=== PATIENT | male | born 1960 | race Caucasian/White ===

== ENCOUNTER → 2017-01-20 | Day surgery (SDC) | payer BC ==
[~2017-01-20] VITALS: Ht 179.1 cm; Wt 137.0 kg
[~2017-01-20] MED LIST: BACITRACIN 50,000 UNITS/VIAL ONE; GELATIN SPONGE,ABSORBABLE SZ 100 ONE; GLIM4TAB2 PO; LISI10TA5 PO; MAGN400C PO; METF850T2 PO; NORMAL SALINE 0.9% 10 ML SYR ONE; OXYC-100 PO; PANT40TA4 PO; PIRO20CA2 PO; POTA20TA82 PO; THROMBIN (BOVINE) 5000 UNITS/VIAL TOP ONE; TRIA1TAB5 PO
[2017-01-20 10:38] LABS: BASOPHILS % 0.9 % (0.0-2.0); EOSINOPHILS % 3.2 % (0.0-5.0); HEMOGLOBIN. 13.1 g/dL (14.0-18.0); LYMPHOCYTES % 19.3 % (20.0-50.0); MEAN CORPUSCULAR HEMOGLOBIN 30.7 pg (28.0-32.0); MEAN PLATELET VOLUME 7.8 fl (7.4-10.4); MONOCYTES % 9.6 % (2.0-8.0); PLATELET 59 x1000/uL (130-400); RED BLOOD CELL COUNT 4.27 mill/uL (4.7-6.1); RED CELL DISTRIBUTION WIDTH 15.6 % (11.6-14.6)
[2017-01-20 10:48] LABS: INR 1.1; PARTIAL THROMBOPLASTIN TIME 25.9 sec (24.0-34.0); PROTHROMBIN TIME 11.3 sec
[2017-01-20 10:51] LABS: CARBON DIOXIDE 27 mEq/L (21-32); CHLORIDE 102 mEq/L (98-107)
[2017-01-20 12:08] LABS: PLATELET ESTIMATE DECREASED
== END ==
LOC: OR 08:46
PROVIDERS: ATTEND Neurological Surgery
DX: M48.56XA Collapsed vertebra, not elsewhere classified, lumbar region, initial encounter for fracture (principal); Z53.9 Procedure and treatment not carried out, unspecified reason
CPT/HCPCS: 36415; 80048; 80076; 82962; 85025; 85610; 85730; 86850; 86900; 86901; A4216; J3490

== ENCOUNTER 2017-01-25 05:39 | Inpatient (IN) | payer BC ==
[~2017-01-25] VITALS: Ht 177.8 cm; Wt 141.5 kg
[2017-01-25] VITALS (34 sets, daily range): BP systolic 106–181; BP diastolic 32–99
[~2017-01-25 05:39] MED LIST changes: -BACITRACIN 50,000 UNITS/VIAL ONE; -GELATIN SPONGE,ABSORBABLE SZ 100 ONE; -NORMAL SALINE 0.9% 10 ML SYR ONE; -THROMBIN (BOVINE) 5000 UNITS/VIAL TOP ONE
[2017-01-25 07:07] LABS: HEMATOCRIT. 36.5 % (42.0-52.0); HEMOGLOBIN. 12.5 g/dL (14.0-18.0); MEAN CORPUSCULAR HEMOGLOBIN 30.5 pg (28.0-32.0); MEAN PLATELET VOLUME 8.2 fl (7.4-10.4); PLATELET 57 x1000/uL (130-400); RED CELL DISTRIBUTION WIDTH 15.6 % (11.6-14.6)
[2017-01-25] MEDS ORDERED: SODIUM CHLORIDE 0.9% 1,000 ML IV ONE (07:45)
[2017-01-25] MEDS ORDERED: HYDROMORPHONE HCL/PF 2MG/ML CPJ IV PRN (09:30)
[2017-01-25] MEDS ORDERED: ONDANSETRON HCL 4MG/2ML VIAL IV PRN ×2 (09:30→11:15)
[2017-01-25] MEDS ORDERED: ATROPINE SULFATE 0.4MG/ML VIAL IV PRN (09:30)
[2017-01-25] MEDS ORDERED: MEPERIDINE HCL/PF 25MG/ML CPJ IV PRN (09:30)
[2017-01-25] MEDS ORDERED: THROMBIN (BOVINE) 5000 UNITS/VIAL TOP ONE (09:53)
[2017-01-25] MEDS ORDERED: GELATIN SPONGE,ABSORBABLE SZ 100 ONE (09:53)
[2017-01-25] MEDS ORDERED: BACITRACIN 50,000 UNITS/VIAL ONE (09:54)
[2017-01-25] MEDS ORDERED: LIDOCAINE HCL/EPINEPHRINE 1%-EPI 1:100,000 50 ML VIAL INFIL ONE (09:54)
[2017-01-25] MEDS ORDERED: NORMAL SALINE 0.9% 10 ML SYR ONE (09:54)
[2017-01-25] MEDS ORDERED: IPRATROPIUM/ALBUTEROL 0.5-3(2.5)MG/3ML NEB INH PRN (11:15)
[2017-01-25] MEDS ORDERED: DIPHENHYDRAMINE 50MG/ML VIAL IV PRN (11:15)
[2017-01-25] MEDS ORDERED: NICARDIPINE 50 MG in SODIUM CHLORIDE 0.9% 230 ML IV PRN (11:15)
[2017-01-25] MEDS ORDERED: CLONIDINE 0.1MG TABLET PO PRN (11:15)
[2017-01-25] MEDS ORDERED: ACETAMINOPHEN 325MG TABLET PO PRN (11:15)
[2017-01-25 12:08] LABS: PLATELET ESTIMATE DECREASED
[2017-01-25] MEDS ORDERED: DEXAMETHASONE 4MG/ML 1ML VIAL ONE (12:29)
[2017-01-25] MEDS ORDERED: CEFAZOLIN SODIUM 1000MG/VIAL IV SCH (14:00)
[2017-01-25] MEDS ORDERED: HYDROMORPHONE HCL/PF 2MG/ML (OR) ONE (14:14)
[2017-01-25] MEDS ORDERED: FENTANYL CITRATE/PF 50MCG/ML 2ML VIAL ONE (14:28)
[2017-01-25] MEDS ORDERED: DIPHENHYDRAMINE INJ IV PRN (14:45)
[2017-01-25] MEDS ORDERED: NALOXONE INJ IV PRN (14:45)
[2017-01-25] MEDS ORDERED: ONDANSETRON INJ IV PRN (14:45)
[2017-01-25] MEDS: DEXT 5%/LACTATED RINGERS 1,000 ML IV SCH (14:54)
[2017-01-25] MEDS: HYDROMORPHONE PCA 10MG/50ML IV PRN (14:56)
[2017-01-25] MEDS ORDERED: NICARDIPINE 100 MG in SODIUM CHLORIDE 0.9% 60 ML IV PRN (15:00)
[2017-01-25 16:43] LABS: HEMATOCRIT. 34.7 % (42.0-52.0); HEMOGLOBIN. 11.7 g/dL (14.0-18.0); MEAN CORPUSCULAR HEMOGLOBIN 30.2 pg (28.0-32.0); MEAN CORPUSCULAR VOLUME 89.5 fL (80.0-94.0); MEAN PLATELET VOLUME 7.9 fl (7.4-10.4); PLATELET 67 x1000/uL (130-400); RED BLOOD CELL COUNT 3.88 mill/uL (4.7-6.1); RED CELL DISTRIBUTION WIDTH 15.5 % (11.6-14.6)
[2017-01-25 17:06] LABS: PLATELET ESTIMATE DECREASED
[2017-01-25] MEDS ORDERED: BLOOD SUGAR DIAGNOSTIC STRIP TEST SCH (18:00)
[2017-01-25] MEDS: MAGNESIUM OXIDE 400MG TABLET PO SCH (18:11)
[2017-01-25] MEDS: CEFAZOLIN 1000MG PREMIX 50 ML IV SCH ×2 (18:12→23:23)
[2017-01-25] MEDS: INSULIN LISPRO 100 UNITS/ML SUBCUT SCH ×2 (18:14→23:44)
[2017-01-25] MEDS ORDERED: DEXTROSE 50% WATER 50ML SYRINGE IV PRN (18:15)
[2017-01-25] MEDS ORDERED: ERGOCALCIFEROL 50000UNITS CAPSULE PO SCH (18:30)
[2017-01-25] MEDS: BLOOD SUGAR DIAGNOSTIC STRIP TEST SCH (23:23)
[2017-01-26] VITALS (32 sets, daily range): BP systolic 9–154; BP diastolic -11–86
[2017-01-26] MEDS: HYDROMORPHONE PCA 10MG/50ML IV PRN ×2 (03:03→15:58)
[2017-01-26] MEDS: INSULIN LISPRO 100 UNITS/ML SUBCUT SCH ×3 (05:36→18:00)
[2017-01-26] MEDS: BLOOD SUGAR DIAGNOSTIC STRIP TEST SCH ×3 (05:36→18:33)
[2017-01-26] MEDS: PANTOPRAZOLE 40MG DR TABLET PO SCH (05:37)
[2017-01-26 05:38] LABS: BASOPHILS % 0.1 % (0.0-2.0); HEMATOCRIT. 29.2 % (42.0-52.0); MEAN CORPUSCULAR HEMOGLOBIN 30.4 pg (28.0-32.0); MEAN CORPUSCULAR VOLUME 89.4 fL (80.0-94.0); MEAN PLATELET VOLUME 8.3 fl (7.4-10.4); MONOCYTES % 7.5 % (2.0-8.0); NEUTROPHILS % 83.4 % (40.0-76.0); PLATELET 71 x1000/uL (130-400); RED BLOOD CELL COUNT 3.27 mill/uL (4.7-6.1); RED CELL DISTRIBUTION WIDTH 15.2 % (11.6-14.6)
[2017-01-26 05:52] LABS: CARBON DIOXIDE 26 mEq/L (21-32); CHLORIDE 102 mEq/L (98-107); PHOSPHORUS 3.7 mg/dL (2.5-4.9)
[2017-01-26] MEDS ORDERED: PNEUMOCOCCAL 23-VAL P-SAC VAC 0.5 ML IM ONE (07:00)
[2017-01-26] MEDS: DEXT 5%/LACTATED RINGERS 1,000 ML IV SCH (08:44)
[2017-01-26] MEDS: CEFAZOLIN 1000MG PREMIX 50 ML IV SCH ×2 (08:44→16:12)
[2017-01-26] MEDS: GLIMEPIRIDE 2MG TABLET PO SCH (08:45)
[2017-01-26] MEDS: MAGNESIUM OXIDE 400MG TABLET PO SCH ×2 (08:45→16:12)
[2017-01-26] MEDS: POTASSIUM CHLORIDE 20MEQ TABLET SR PO SCH (08:45)
[2017-01-26] MEDS: TRIAMTERENE/HYDROCHLOROTHIAZID 75/50MG TABLET PO SCH (08:47)
[2017-01-27] VITALS (36 sets, daily range): BP systolic 104–141; BP diastolic 41–91
[2017-01-27] MEDS: BLOOD SUGAR DIAGNOSTIC STRIP TEST SCH ×4 (00:24→18:37)
[2017-01-27] MEDS: DEXT 5%/LACTATED RINGERS 1,000 ML IV SCH (00:29)
[2017-01-27] MEDS: CEFAZOLIN 1000MG PREMIX 50 ML IV SCH ×3 (00:33→17:00)
[2017-01-27] MEDS: HYDROMORPHONE PCA 10MG/50ML IV PRN ×2 (04:26→15:28)
[2017-01-27] MEDS: INSULIN LISPRO 100 UNITS/ML SUBCUT SCH ×5 (06:00→23:59)
[2017-01-27] MEDS: PANTOPRAZOLE 40MG DR TABLET PO SCH (06:28)
[2017-01-27] MEDS: MAGNESIUM OXIDE 400MG TABLET PO SCH ×2 (08:49→18:27)
[2017-01-27] MEDS: GLIMEPIRIDE 2MG TABLET PO SCH (08:49)
[2017-01-27] MEDS: POTASSIUM CHLORIDE 20MEQ TABLET SR PO SCH (08:49)
[2017-01-27] MEDS: TRIAMTERENE/HYDROCHLOROTHIAZID 75/50MG TABLET PO SCH (08:50)
[2017-01-27 10:04] LABS: HEMATOCRIT 28.2 % (42.0-52.0); HEMOGLOBIN 9.6 g/dL (14.0-18.0); MEAN CORPUSCULAR HEMOGLOBIN 30.3 pg (28.0-32.0); MEAN CORPUSCULAR VOLUME 88.8 fL (80.0-94.0); PLATELET 61 x1000/uL (130-400); RED BLOOD CELL COUNT 3.18 mill/uL (4.7-6.1)
[2017-01-27 10:14] LABS: INR 1.1; PARTIAL THROMBOPLASTIN TIME 26.5 sec (23.4-31.0); PROTHROMBIN TIME 11.5 sec (9.4-11.6)
[2017-01-27] MEDS: DOCUSATE SODIUM 100MG CAPSULE PO SCH ×2 (15:30→18:27)
[2017-01-27] MEDS: MAGNESIUM HYDROXIDE 400MG/5ML 30ML UDC PO PRN (18:26)
[2017-01-28] VITALS (19 sets, daily range): BP systolic 111–148; BP diastolic 47–95
[2017-01-28] MEDS: BLOOD SUGAR DIAGNOSTIC STRIP TEST SCH ×4 (00:14→16:52)
[2017-01-28] MEDS: HYDROMORPHONE PCA 10MG/50ML IV PRN (01:09)
[2017-01-28] MEDS: INSULIN LISPRO 100 UNITS/ML SUBCUT SCH ×3 (06:00→16:52)
[2017-01-28] MEDS ORDERED: HYDROMORPHONE HCL/PF 2MG/ML CPJ IV PRN (08:00)
[2017-01-28] MEDS: PANTOPRAZOLE 40MG DR TABLET PO SCH (08:04)
[2017-01-28] MEDS: TRIAMTERENE/HYDROCHLOROTHIAZID 75/50MG TABLET PO SCH (08:05)
[2017-01-28] MEDS: DOCUSATE SODIUM 100MG CAPSULE PO SCH ×2 (08:06→16:51)
[2017-01-28] MEDS: MAGNESIUM OXIDE 400MG TABLET PO SCH ×2 (08:06→16:51)
[2017-01-28] MEDS: POTASSIUM CHLORIDE 20MEQ TABLET SR PO SCH (08:06)
[2017-01-28] MEDS: GLIMEPIRIDE 2MG TABLET PO SCH (08:06)
[2017-01-28] MEDS: OXYCODONE HCL/ACETAMINOPHEN 5/325MG TABLET PO PRN ×2 (09:18→22:03)
[2017-01-28] MEDS: HYDROMORPHONE HCL/PF 2MG/ML CPJ IV PRN ×3 (09:34→20:05)
[2017-01-28 10:11] LABS: HEMATOCRIT 29.6 % (42.0-52.0); HEMOGLOBIN 10.1 g/dL (14.0-18.0); MEAN CORPUSCULAR HEMOGLOBIN 30.4 pg (28.0-32.0); MEAN CORPUSCULAR VOLUME 89.3 fL (80.0-94.0); PLATELET 74 x1000/uL (130-400); RED BLOOD CELL COUNT 3.32 mill/uL (4.7-6.1); RED CELL DISTRIBUTION WIDTH 15.1 % (11.6-14.6)
[2017-01-28] MEDS ORDERED: NOREPINEPHRINE 16 MG in DEXT 5% WATER 234 ML IV PRN (12:15)
[2017-01-28] MEDS: MAGNESIUM HYDROXIDE 400MG/5ML 30ML UDC PO PRN (20:07)
[2017-01-29 00:24] VITALS: BP 107/43
[2017-01-29] MEDS: HYDROMORPHONE HCL/PF 2MG/ML CPJ IV PRN ×6 (00:38→19:59)
[2017-01-29] MEDS: BLOOD SUGAR DIAGNOSTIC STRIP TEST SCH ×4 (00:39→17:55)
[2017-01-29 04:00] VITALS: BP 142/69
[2017-01-29] MEDS: INSULIN LISPRO 100 UNITS/ML SUBCUT SCH ×4 (06:00→18:41)
[2017-01-29] MEDS: PANTOPRAZOLE 40MG DR TABLET PO SCH (06:56)
[2017-01-29 08:00] VITALS: BP 118/52
[2017-01-29] MEDS: DOCUSATE SODIUM 100MG CAPSULE PO SCH ×2 (09:16→18:03)
[2017-01-29] MEDS: MAGNESIUM OXIDE 400MG TABLET PO SCH ×2 (09:16→18:03)
[2017-01-29] MEDS: POTASSIUM CHLORIDE 20MEQ TABLET SR PO SCH (09:17)
[2017-01-29] MEDS: GLIMEPIRIDE 2MG TABLET PO SCH (09:17)
[2017-01-29] MEDS: TRIAMTERENE/HYDROCHLOROTHIAZID 75/50MG TABLET PO SCH (09:17)
[2017-01-29] MEDS: OXYCODONE HCL/ACETAMINOPHEN 5/325MG TABLET PO PRN ×2 (10:34→18:08)
[2017-01-29 12:00] VITALS: BP 130/66
[2017-01-29 16:00] VITALS: BP 139/59
[2017-01-29 20:00] VITALS: BP 112/51
[2017-01-30] VITALS: BP 108/52
[2017-01-30] MEDS: HYDROMORPHONE HCL/PF 2MG/ML CPJ IV PRN ×5 (00:05→17:43)
[2017-01-30] MEDS: OXYCODONE HCL/ACETAMINOPHEN 5/325MG TABLET PO PRN ×2 (00:05→05:22)
[2017-01-30] MEDS: MAGNESIUM HYDROXIDE 400MG/5ML 30ML UDC PO PRN ×2 (00:06→08:33)
[2017-01-30] MEDS: BLOOD SUGAR DIAGNOSTIC STRIP TEST SCH ×4 (00:09→17:45)
[2017-01-30] MEDS: INSULIN LISPRO 100 UNITS/ML SUBCUT SCH ×4 (00:09→17:45)
[2017-01-30 04:00] VITALS: BP 127/56
[2017-01-30 08:00] VITALS: BP 139/66
[2017-01-30] MEDS: MAGNESIUM OXIDE 400MG TABLET PO SCH ×2 (08:33→17:38)
[2017-01-30] MEDS: DOCUSATE SODIUM 100MG CAPSULE PO SCH ×2 (08:33→17:38)
[2017-01-30] MEDS: POTASSIUM CHLORIDE 20MEQ TABLET SR PO SCH (08:33)
[2017-01-30] MEDS: TRIAMTERENE/HYDROCHLOROTHIAZID 75/50MG TABLET PO SCH (08:34)
[2017-01-30] MEDS: PANTOPRAZOLE 40MG DR TABLET PO SCH (08:34)
[2017-01-30] MEDS: GLIMEPIRIDE 2MG TABLET PO SCH (09:22)
[2017-01-30 12:00] VITALS: BP 136/67
[2017-01-30 16:00] VITALS: BP 143/66
[2017-01-30 18:18] VITALS: BP 143/66
== END 2017-01-30 18:55 | disposition home or self-care (01) | DRG 460 ==
LOC: OR 05:39 → MICUSO 05:40 → MICUNO 01-26 16:30 → 6EST 01-28 10:15
PROVIDERS: ADMIT Internal Medicine Pulmonary Disease; ATTEND Internal Medicine Pulmonary Disease
PROC: 0SG3071 Fusion of Lumbosacral Joint with Autologous Tissue Substitute, Posterior Approach, Posterior Column, Open Approach (ICD-10-PCS; principal; 2017-01-26)
PROC: 0SG0071 Fusion of Lumbar Vertebral Joint with Autologous Tissue Substitute, Posterior Approach, Posterior Column, Open Approach (ICD-10-PCS; 2017-01-26)
PROC: 01NB0ZZ Release Lumbar Nerve, Open Approach (ICD-10-PCS; 2017-01-26)
PROC: 01NR0ZZ Release Sacral Nerve, Open Approach (ICD-10-PCS; 2017-01-26)
PROC: 4A11X4G Monitoring of Peripheral Nervous Electrical Activity, Intraoperative, External Approach (ICD-10-PCS; 2017-01-26)
PROC: 30233N1 Transfusion of Nonautologous Red Blood Cells into Peripheral Vein, Percutaneous Approach (ICD-10-PCS; 2017-01-26)
DX: T84.028A Dislocation of other internal joint prosthesis, initial encounter (principal); D61.818 Other pancytopenia; M48.56XA Collapsed vertebra, not elsewhere classified, lumbar region, initial encounter for fracture; Z68.41 Body mass index [BMI] 40.0-44.9, adult; Y83.1 Surgical operation with implant of artificial internal device as the cause of abnormal reaction of the patient, or of later complication, without mention of misadventure at the time of the procedure; G47.30 Sleep apnea, unspecified; M47.27 Other spondylosis with radiculopathy, lumbosacral region; E11.9 Type 2 diabetes mellitus without complications; I10 Essential (primary) hypertension; E66.9 Obesity, unspecified; N40.0 Benign prostatic hyperplasia without lower urinary tract symptoms; F17.210 Nicotine dependence, cigarettes, uncomplicated; K59.00 Constipation, unspecified; M48.07 Spinal stenosis, lumbosacral region; M43.17 Spondylolisthesis, lumbosacral region; Z82.49 Family history of ischemic heart disease and other diseases of the circulatory system; Z82.0 Family history of epilepsy and other diseases of the nervous system; Z82.61 Family history of arthritis; Z79.84 Long term (current) use of oral hypoglycemic drugs; Z79.899 Other long term (current) drug therapy; Z91.048 Other nonmedicinal substance allergy status; Y92.89 Other specified places as the place of occurrence of the external cause
CPT/HCPCS: 36415; 72100; 80048; 82962; 83735; 84100; 85025; 85027; 85610; 85730; 86850; 86900; 86945; 87070; 87075; 87205; 88304; 88311; 90732; 95863; 95925; 95926; 97116; 97162; 97530; A4216; C1713; C1893; J0690; J1100; J1170; J1815; J2405; J3010; J3490; J7030; J7121; P9034